=== PATIENT | female | born 1940 | race Caucasian/White ===

== ENCOUNTER 2017-01-19 01:28 | Emergency (ER) | payer MEDICARE ==
[~2017-01-19 01:28] MED LIST: ASPIR 8181 M1 PO; ASPIRIN EC81 M1 PO; BENAZEPRIL HCL20 M1 PO; BIOTIN PO; CALCIUM 600 +1 EA15 PO; CALCIUM C PO; CALCIUM CITRAT1 EA15 PO; CALCIUM PO; COLACE100 M1 PO; CYANOCOBAL1000 MCG/3 SC; CYANOCOBAL1000 MCG/M IJ; EQL FISH OIL 1,1 CA1 PO; FISH OIL 1,2001 EAC4 PO; GLUCOSAMINE CH1 EAC6 PO; GLUCOSAMINE CH1 EACH PO; IBUPROFEN800 M1 PO; LEVOTHROID125 MCG PO; LEVOTHYROXINE112 MC3 PO; MAGNESIUM250 M3 PO; MAXZIDE1 TA2 PO; METOPROLOL TAR100 M2 PO; METOPROLOL TAR100 MG PO; PERCOCET 2.5-31 EACH PO; PRENATAL FORMU1 EAC1 PO; PRENATAL1 TAB PO; SIMVASTATIN20 M1 PO; SIMVASTATIN20 MG PO; TRIAMTERENE-HC1 EAC3 PO; TUMERIC PO; TURMERIC500 M1 PO; VITAMIN C1000 M1 PO; VITAMIN C1000 MG PO; ZOFRAN4 MG PO; [UNRECOGNIZED DRUG - CODE] PO
[2017-01-19 03:14] LABS: URINE BILIRUBIN NEGATIVE (NEG); URINE BLOOD NEGATIVE (NEG); URINE GLUCOSE (UA) NEGATIVE (NEG); URINE KETONE NEGATIVE (NEG); URINE LEUKOCYTE ESTERASE NEGATIVE (NEG); URINE NITRITE NEGATIVE (NEG); URINE PH 6.5 (5.0-8.0); URINE PROTEIN NEGATIVE (NEG); URINE SPECIFIC GRAVITY 1.005 (1.003-1.030)
[2017-01-19 03:17] LABS: URINE APPEARANCE CLEAR; URINE COLOR PALE YELLOW
[2017-01-19] MEDS ORDERED: ZOFRAN4 M2 PO (04:51)
[2017-01-19] MEDS ORDERED: NORCO 5-325 TA1 EACH PO (04:51)
[2017-01-19] MEDS ORDERED: VALIUM2 M1 PO (04:51)
== END 2017-01-19 05:05 ==
LOC: EDMED 01:28
PROVIDERS: Emergency Medicine
DX: S39.012A Strain of muscle, fascia and tendon of lower back, initial encounter (principal); I10 Essential (primary) hypertension; Z90.710 Acquired absence of both cervix and uterus; Z79.899 Other long term (current) drug therapy; X50.1XXA Overexertion from prolonged static or awkward postures, initial encounter; Y93.89 Activity, other specified; Y99.8 Other external cause status